=== PATIENT | male | born 1975 | race Caucasian/White ===

== ENCOUNTER → 2016-08-12 | Outpatient (CLI) | payer OTHER ==
[~2016-08-12] MED LIST: GLC850 PO; LISI-725 PO; METO50TA7 PO; SITA100T3 PO
[2016-08-12 14:32] LABS: BLOOD UREA NITROGEN 11 mg/dl (7-18)
== END | disposition home or self-care (01) ==
LOC: C.LABBC 09:46
PROVIDERS: ATTEND Orthopaedic Surgery
DX: M25.519 Pain in unspecified shoulder (principal)